=== PATIENT | male | born 1945 | race Caucasian/White ===

== ENCOUNTER 2020-07-19 13:38 | Emergency (ER) | payer MEDICARE ==
[2020-07-19] MEDS ORDERED: BLOOD PRESSURE MED (15:06)
[2020-07-19] MEDS ORDERED: KEFLEX500 MG PO (15:25)
[2020-07-19 15:35] VITALS: BP 127/73
== END 2020-07-19 15:35 | disposition home or self-care (01) ==
LOC: ED 13:38
PROC: 0HQGXZZ Repair Left Hand Skin, External Approach (ICD-10-PCS; principal; 2020-07-19)
DX: S61.213A Laceration without foreign body of left middle finger without damage to nail, initial encounter (principal); I10 Essential (primary) hypertension; G62.9 Polyneuropathy, unspecified; K21.9 Gastro-esophageal reflux disease without esophagitis; W26.8XXA Contact with other sharp object(s), not elsewhere classified, initial encounter; Y93.89 Activity, other specified; Y92.009 Unspecified place in unspecified non-institutional (private) residence as the place of occurrence of the external cause